=== PATIENT | female | born 1990 | race Caucasian/White ===

== ENCOUNTER 2021-12-24 05:31 | Emergency (ER) | payer BC ==
[2021-12-24] MEDS ORDERED: Ibuprofen 400 MG Tab PO ONE (06:04)
[2021-12-24] MEDS ORDERED: Pseudoephedrine 30 MG Tab PO ONE (06:05)
== END 2021-12-24 06:26 | disposition home or self-care (01) ==
LOC: JP.ED 05:31
DX: H73.21 Unspecified myringitis, right ear (principal)
CPT/HCPCS: 99282; A9270-GY